=== PATIENT | male | born 1955 | race Asian ===

== ENCOUNTER 2019-05-05 17:27 | Emergency (ER) | payer MEDICAID ==
[~2019-05-05] VITALS: Ht 180.3 cm; Wt 97.5 kg
[2019-05-05 17:58] VITALS: Ht 180.3 cm; Wt 97.5 kg
[2019-05-05 21:11] LABS: BASOPHIL % 0.3 % (0-2); RED CELL DISTRIBUTION WIDTH 13.6 % (11.5-14.5)
[2019-05-05 21:17] LABS: PLATELET COUNT 109 x10^3mcL (130-400)
[2019-05-05 21:33] LABS: ALBUMIN 3.9 g/dL (3.4-5.0); BILIRUBIN TOTAL 0.56 mg/dL (0.20-1.00); CALCIUM 8.7 mg/dL (8.5-10.1); CARBON DIOXIDE 22.8 mmol/L (21-32); TOTAL PROTEIN, SERUM 7.8 g/dL (6.4-8.2)
[2019-05-05 21:45] LABS: CREATININE SERUM 7.9 mg/dL (0.7-1.3)
[2019-05-05 21:57] VITALS: BP 142/77
== END 2019-05-05 21:37 | disposition home or self-care (01) ==
LOC: ED 17:27
PROVIDERS: Emergency Medicine
DX: R53.1 Weakness (principal); D64.9 Anemia, unspecified; I12.9 Hypertensive chronic kidney disease with stage 1 through stage 4 chronic kidney disease, or unspecified chronic kidney disease; N18.9 Chronic kidney disease, unspecified; Z99.2 Dependence on renal dialysis
CPT/HCPCS: 36415; 83880; Q0092